=== PATIENT | male | born 1960 | race African-American/Black ===

== ENCOUNTER 2021-03-11 10:58 | Emergency (ER) | payer OTHER ==
[~2021-03-11] VITALS: Ht 172.7 cm; Wt 117.9 kg
[2021-03-11 11:02] VITALS: BP 205/120
[2021-03-11] MEDS ORDERED: KETOROLAC 30 MG/ML VIAL IM ONE (11:25)
--- NOTE | 2021-03-11 11:26 | NUR ---
61 y/o male c/o left sided chest pain that radiates to left side of neck x 3 days. pt states pain was unprovoked. Denies SOB. Awake and alert, states intermittent shooting pain. 6/10 pain when it occurs. RR even and unlabored, does not appear in distress. Placed on bedside monitor. medhx: gout
--- NOTE | 2021-03-11 11:36 | NUR ---
Lab at bedside for blood draw.
[2021-03-11 11:54] LABS: BASOPHILS # (AUTO) 0.1 K/uL (0.00-0.22); BASOPHILS % (AUTO) 0.8 % (0.0-2.0); EOSINOPHILS # (AUTO) 0.3 K/uL (0-0.4); EOSINOPHILS % (AUTO) 4.7 % (0.0-4.0); HEMATOCRIT 40.9 % (36-52); LYMPHOCYTES # (AUTO) 2.2 K/uL (2.0-11.5); LYMPHOCYTES % (AUTO) 33.2 % (20.5-51.1); MEAN CORPUSCULAR HEMOGLOBIN 31 pg (27-31); MEAN CORPUSCULAR HGB CONC 34 g/dL (33-37); MEAN CORPUSCULAR VOLUME 89.3 fL (80-94); MONOCYTES # (AUTO) 0.7 K/uL (0.8-1.0); MONOCYTES % (AUTO) 10.1 % (1.7-9.3); NEUTROPHILS # (AUTO) 3.5 K/uL (1.8-7.7); NEUTROPHILS % (AUTO) 51.2 % (42.2-75.2); PLATELET COUNT (AUTO) 300 K/uL (140-450); RED BLOOD CELL COUNT(AUTO) 4.58 MIL/uL (4.20-6.10); RED CELL DISTRIBUTION WIDTH 13.5 % (11.6-13.7); WHITE BLOOD COUNT (AUTO) 6.8 K/uL (4.8-10.8)
[2021-03-11 11:59] LABS: ALBUMIN 3.7 g/dL (3.4-5.0); ANION GAP 7.7 (8-16); CARBON DIOXIDE 28.4 mmol/L (21-32); CREATININE 0.9 mg/dL (0.6-1.3); POTASSIUM 4.1 mmol/L (3.5-5.1); TOTAL BILIRUBIN 0.5 mg/dL (0.0-1.0)
[2021-03-11] MEDS ORDERED: NAPR-54 PO (12:50)
[2021-03-11] MEDS ORDERED: METH-1681 PO (12:50)
[2021-03-11 13:06] VITALS: BP 181/100
--- NOTE | 2021-03-11 13:06 | NUR ---
Patient discharged with v/s stable. Written and verbal after care instructions given and explained. Patient alert, oriented and verbalized understanding of instructions. Ambulatory with steady gait. All questions addressed prior to discharge. ID band removed. Patient advised to follow up with PMD. Rx of Robaxin and Naproxen given. Patient educated on indication of medication including possible reaction and side effects. Opportunity to ask questions provided and answered.
== END 2021-03-11 13:06 | disposition home or self-care (01) ==
LOC: MED 10:58
DX: R07.89 Other chest pain (principal); Z79.1 Long term (current) use of non-steroidal anti-inflammatories (NSAID); Z79.899 Other long term (current) drug therapy
CPT/HCPCS: 36415; 71045; 80053; 83690; 83880; 84484; 85025; 93005; 96372; 99285; J1885; Q0092

== ENCOUNTER 2021-03-13 07:09 | Emergency (ER) | payer OTHER ==
[~2021-03-13] VITALS: Ht 175.3 cm; Wt 138.8 kg
[~2021-03-13 07:09] MED LIST: METH-1681 PO; NAPR-54 PO
[2021-03-13 07:18] VITALS: BP 162/99
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
--- NOTE | 2021-03-13 07:43 | NUR ---
DR SYED AT BEDSIDE EXAMINING PT
[2021-03-13] MEDS ORDERED: KETOROLAC 60 MG/2 ML VIAL IM ONE (07:45)
[2021-03-13] MEDS ORDERED: AZIT250T4 PO (08:31)
[2021-03-13] MEDS ORDERED: ACET-8386 PO (08:32)
[2021-03-13 08:45] VITALS: BP 128/78
--- NOTE | 2021-03-13 08:45 | NUR ---
Patient discharged with v/s stable. Written and verbal after care instructions given and explained with teachback completed. Patient alert, oriented and verbalized understanding of instructions. Ambulatory with steady gait. All questions addressed prior to discharge. ID band removed. Patient advised to follow up with PMD. Rx of HYDROCODONE/ACETAMINOPHEN AND AZITHROMYCIN given. Patient educated on indication of medication including possible reaction and side effects. Opportunity to ask questions provided and answered.
== END 2021-03-13 08:45 | disposition home or self-care (01) ==
LOC: MED 07:09
DX: M25.512 Pain in left shoulder (principal); J18.9 Pneumonia, unspecified organism; M54.59 Other low back pain
CPT/HCPCS: 96372; 99283; J1885

== ENCOUNTER 2021-04-02 07:42 | Emergency (ER) | payer OTHER ==
[~2021-04-02] VITALS: Ht 170.2 cm; Wt 139.4 kg
[~2021-04-02 07:42] MED LIST changes: +ACET-8386 PO; +AZIT250T4 PO
[2021-04-02 07:47] VITALS: BP 194/107
--- NOTE | 2021-04-02 07:55 | NUR ---
PATIENT AMBULATED TO BED 4.
[2021-04-02] MEDS ORDERED: HYDROcodone/APAP 5/325 MG 1 TAB TAB PO ONE (08:25)
--- NOTE | 2021-04-02 08:34 | NUR ---
61/M BIB SISTER WITH C/O LEFT ARM PAIN X3 DAYS. PATIENT STATES HE HAD A HOSPITAL ADMISSION STAY TWO WEEKS AGO AND RECEIVED A TORADOL INJECTION, STATING S/P INJECTION HE FELT SOME NUMBNESS AT SITE. PATIENT STATES 3 DAYS AGO SITE BEGAN GETTING INCREASINGLY MORE PAINFUL, WORSENING WITH MOVEMENT OR LYING ON ARM. DENIES RECENT INJURY OR TRAUMA, REPORTS 9/10 SHARP PAIN, DENIES TAKING ANYTHING AT HOME FOR PAIN. ROM LIMITED D/T PAIN, PATIENT HAS EQUAL SENATION AND PULSES BILATERALLY.
--- NOTE | 2021-04-02 08:38 | NUR ---
XRAY AT PT BEDSIDE
[2021-04-02] MEDS ORDERED: ACET-8386 PO (09:41)
[2021-04-02 10:22] VITALS: BP 159/89
--- NOTE | 2021-04-02 10:28 | NUR ---
Patient discharged with v/s stable. Written and verbal after care instructions ABOUT SHOULDER EXERCISES, CALCIFIC TENDINITIS, SHOULDER IMPINGEMENT SYNDROME REHAB given and explained. Patient alert, oriented and verbalized understanding of instructions. Ambulatory with steady gait. All questions addressed prior to discharge. ID band removed. Patient advised to follow up with PMD. Rx of HYDROCODONE/ACETAMINOPHEN given.
--- NOTE | 2021-04-02 10:31 | NUR ---
The patient's care was reviewed and supervised by Mary Carmen Esteban RN.
== END 2021-04-02 10:28 | disposition home or self-care (01) ==
LOC: MED 07:42
DX: M75.32 Calcific tendinitis of left shoulder (principal); Z79.899 Other long term (current) drug therapy; Z79.891 Long term (current) use of opiate analgesic; Z79.1 Long term (current) use of non-steroidal anti-inflammatories (NSAID); Z79.2 Long term (current) use of antibiotics
CPT/HCPCS: 73030; 99285; Q0092

== ENCOUNTER 2022-09-09 08:49 | Emergency (ER) | payer OTHER ==
[~2022-09-09] VITALS: Ht 175.3 cm; Wt 119.7 kg
[~2022-09-09 08:49] MED LIST changes: -ACET-8386 PO; +ACET-8905 PO
[2022-09-09 09:17] VITALS: BP 155/95
[2022-09-09 10:19] LABS: BILIRUBIN,URINE NEGATIVE (NEGATIVE); BLOOD, URINE NEGATIVE (NEGATIVE); COLOR,URINE YELLOW (YELLOW); LEUKOCYTE ESTERASE ,URINE 2+ (NEGATIVE); NITRITE, URINE POSITIVE (NEGATIVE); UGLUCOSE NEGATIVE (NEGATIVE)
[2022-09-09] MEDS ORDERED: CIPR500T4 PO (10:30)
[2022-09-09 10:36] LABS: RBC,URINE 0-5 /HPF (0-5)
[2022-09-09 10:37] LABS: APPEARANCE,URINE CLOUDY (CLEAR)
== END 2022-09-09 10:48 | disposition home or self-care (01) ==
LOC: MED 08:49
DX: N30.00 Acute cystitis without hematuria (principal); R30.0 Dysuria; Z79.899 Other long term (current) drug therapy
CPT/HCPCS: 81001; 87086; 99283